=== PATIENT | female | born 1985 | race Caucasian/White ===

== ENCOUNTER 2020-12-04 13:02 | Emergency (ER) | payer MEDICAID ==
[~2020-12-04] VITALS: Ht 154.9 cm; Wt 59.0 kg
[~2020-12-04 13:02] MED LIST: ALBU0.0939 IH; CITA20TA15 PO; FLUO40CA6 PO
[2020-12-04 13:09] VITALS: BP 120/74
--- NOTE | 2020-12-04 13:10 | NUR ---
DR. BOGGS ASSESSING PT AT BEDSIDE
--- NOTE | 2020-12-04 13:25 | NUR ---
PATIENT PRESENTS TO ED WITH C/O N/V, EMESIS X4 IN LAST DAY. PT STATES THAT THE FIRST 3 EPISODES OF EMESIS WERE COFFEE GROUND, WITH THE LAST ONE BEING BRIGHTER RED. DENIES DIARRHEA; BOWEL SOUNDS ARE NORMOACTIVE, ABDOMEN NONTENDER, LAST BM WAS NORMAL THIS AM. SKIN IS PINK/WARM/DRY; AAOX4 WITH EVEN AND STEADY GAIT; LUNGS CLEAR BL; HR EVEN AND REGULAR; PT DENIES ANY FEVER, CP, SOB, OR COUGH AT THIS TIME; PATIENT STATES PAIN OF 0/10 AT THIS TIME; VSS; PATIENT POSITIONED FOR COMFORT; HOB ELEVATED; BEDRAILS UP X1; BED DOWN. ER MD MADE AWARE OF PT STATUS. NKA HX: HYPOTHYROID, ANEMIA, REFLUX
[2020-12-04 13:54] LABS: BASOPHILS % (AUTO) 0.4 % (0.0-2.0); EOSINOPHILS # (AUTO) 0.1 K/uL (0-0.4); EOSINOPHILS % (AUTO) 1.5 % (0.0-4.0); HEMATOCRIT 30.7 % (36-48); HEMOGLOBIN 9.4 g/dL (12.0-16.0); LYMPHOCYTES % (AUTO) 25.9 % (20.5-51.1); MEAN CORPUSCULAR HEMOGLOBIN 21 pg (27-31); MEAN CORPUSCULAR HGB CONC 31 g/dL (33-37); MEAN CORPUSCULAR VOLUME 69.9 fL (80-94); MONOCYTES # (AUTO) 0.3 K/uL (0.8-1.0); MONOCYTES % (AUTO) 8.2 % (1.7-9.3); NEUTROPHILS # (AUTO) 2.6 K/uL (1.8-7.7); PLATELET COUNT (AUTO) 247 K/uL (140-450); RED BLOOD CELL COUNT(AUTO) 4.39 MIL/uL (4.20-5.40)
[2020-12-04 14:10] LABS: ALBUMIN 3.7 g/dL (3.4-5.0); ANION GAP 10.4 (8-16); CARBON DIOXIDE 26.5 mmol/L (21-32); CREATININE 0.5 mg/dL (0.6-1.3); POTASSIUM 3.9 mmol/L (3.5-5.1); TOTAL BILIRUBIN 0.4 mg/dL (0.0-1.0)
[2020-12-04] MEDS ORDERED: MAG-27 PO (15:22)
[2020-12-04 15:57] VITALS: BP 125/71
--- NOTE | 2020-12-04 15:58 | NUR ---
Patient discharged with v/s stable. Written and verbal after care instructions given and explained. Patient alert, oriented and verbalized understanding of instructions. Ambulatory with steady gait. All questions addressed prior to discharge. ID band removed. Patient advised to follow up with PMD. Rx of MYLANTA given. Patient educated on indication of medication including possible reaction and side effects. Opportunity to ask questions provided and answered.
== END 2020-12-04 15:48 | disposition home or self-care (01) ==
LOC: MED 13:02
DX: R11.2 Nausea with vomiting, unspecified (principal); J45.909 Unspecified asthma, uncomplicated; K21.9 Gastro-esophageal reflux disease without esophagitis; Z79.899 Other long term (current) drug therapy
CPT/HCPCS: 36415; 80053; 83690; 85025; 99283

== ENCOUNTER 2023-07-14 19:51 | Emergency (ER) | payer MEDICAID ==
[~2023-07-14] VITALS: Ht 154.9 cm; Wt 64.4 kg
[~2023-07-14 19:51] MED LIST changes: +MAG-27 PO
[2023-07-14 20:34] VITALS: BP 96/63; PULSE 63; RESP 20; TEMP 98; O2SAT 98
[2023-07-14 21:14] LABS: APPEARANCE,URINE CLOUDY (CLEAR); BILIRUBIN,URINE NEGATIVE (NEGATIVE); BLOOD, URINE TRACE-I (NEGATIVE); COLOR,URINE YELLOW (YELLOW); LEUKOCYTE ESTERASE ,URINE 3+ (NEGATIVE); NITRITE, URINE NEGATIVE (NEGATIVE); PROTEIN,URINE TRACE (NEGATIVE); UGLUCOSE NEGATIVE (NEGATIVE)
[2023-07-14 21:17] LABS: BACTERIA,URINE 3+ /HPF (None Seen); MUCUS,URINE 1+ /LPF (None Seen); SQUAMOUS EPITHELIAL CELL,UR 80-100 /LPF (0-3 (FEW)); TRICHOMONAS,URINE None Seen /HPF (None Seen); WBC,URINE 20-60 /HPF (0-5); YEAST,URINE None Seen /HPF (None Seen)
[2023-07-14 21:38] LABS: BASOPHILS % (AUTO) 0.5 % (0.0-2.0); EOSINOPHILS # (AUTO) 0.1 K/uL (0-0.4); EOSINOPHILS % (AUTO) 0.9 % (0.0-4.0); HEMATOCRIT 41.7 % (36-48); HEMOGLOBIN 13.9 g/dL (12.0-16.0); LYMPHOCYTES # (AUTO) 1.8 K/uL (2.5-16.5); LYMPHOCYTES % (AUTO) 24.5 % (20.5-51.1); MEAN CORPUSCULAR HEMOGLOBIN 28 pg (27-31); MEAN CORPUSCULAR HGB CONC 33 g/dL (33-37); MEAN CORPUSCULAR VOLUME 83.5 fL (80-94); MONOCYTES # (AUTO) 0.4 K/uL (0.8-1.0); MONOCYTES % (AUTO) 5.2 % (1.7-9.3); NEUTROPHILS # (AUTO) 4.9 K/uL (1.8-7.7); NEUTROPHILS % (AUTO) 68.9 % (42.2-75.2); PLATELET COUNT (AUTO) 252 K/uL (140-450); RED CELL DISTRIBUTION WIDTH 17.4 % (11.6-13.7); WHITE BLOOD COUNT (AUTO) 7.1 K/uL (4.8-10.8)
[2023-07-14] MEDS ORDERED: ONDANSETRON 4 MG/2 ML VIAL IVP ONE (21:55)
[2023-07-14] MEDS ORDERED: NACL 0.9% 1,000 ML IV ONE (21:55)
[2023-07-14 22:01] LABS: ALBUMIN 3.4 g/dL (3.4-5.0); ANION GAP 13.6 (8-16); CALCIUM 8.9 mg/dL (8.5-10.1); CARBON DIOXIDE 26.2 mmol/L (21-32); CREATININE 0.6 mg/dL (0.6-1.3); POTASSIUM 3.8 mmol/L (3.5-5.1); TOTAL BILIRUBIN 0.4 mg/dL (0.0-1.0); TOTAL PROTEIN, SERUM 8.4 g/dL (6.4-8.2)
[2023-07-14] MEDS ORDERED: cefTRIAXone 1,000 MG VIAL ONE (22:53)
[2023-07-14] MEDS ORDERED: NITR100C7 PO (23:25)
[2023-07-14 23:42] LABS: LACTIC ACID 0.7 mmol/L (0.4-2.0)
== END 2023-07-14 23:36 | disposition home or self-care (01) ==
LOC: MED 19:51
DX: O21.0 Mild hyperemesis gravidarum (principal); O23.41 Unspecified infection of urinary tract in pregnancy, first trimester; O99.511 Diseases of the respiratory system complicating pregnancy, first trimester; J45.909 Unspecified asthma, uncomplicated; O99.611 Diseases of the digestive system complicating pregnancy, first trimester; K21.9 Gastro-esophageal reflux disease without esophagitis; O26.891 Other specified pregnancy related conditions, first trimester; M79.661 Pain in right lower leg; Z3A.14 14 weeks gestation of pregnancy; Z79.899 Other long term (current) drug therapy; Z79.2 Long term (current) use of antibiotics
CPT/HCPCS: 36415; 80053; 81001; 81025; 83605; 83690; 84702; 85025; 86900; 86901; 87040; 87086; 93971; 96365; 96375; 99285; J0696; J2405; J7030